=== PATIENT | female | born 1995 | race American Indian/Alaskan Native ===

== ENCOUNTER 2021-11-29 10:37 | Outpatient (CLI) | payer BC ==
--- NOTE | 2021-11-29 14:38 | XRay Report ---
FACIAL BONES 4 VIEW(S) INDICATION / CLINICAL INFORMATION: S09.93XA COMPARISON: None available. FINDINGS: BONES: No acute fracture. PARANASAL SINUSES: No significant abnormality. SOFT TISSUES: No significant abnormality. ADDITIONAL FINDINGS: None. IMPRESSION: 1. No significant abnormality. Signer Name: Camacho Bundy MD Signed: 11/29/2021 2:34 PM Workstation Name: [email or web address]
== END 2021-11-29 10:38 | disposition home or self-care (01) ==
LOC: XRAY 10:37
PROVIDERS: ATTEND Internal Medicine
DX: S09.93XA Unspecified injury of face, initial encounter (principal); X58.XXXA Exposure to other specified factors, initial encounter; Y93.89 Activity, other specified; Y92.89 Other specified places as the place of occurrence of the external cause; Y99.8 Other external cause status
CPT/HCPCS: 70150